=== PATIENT | female | born 1970 | race Caucasian/White ===

== ENCOUNTER 2017-01-03 18:36 | Observation (INO) ==
[2017-01-03] MEDS ORDERED: 0.9 % Sodium Chloride 1,000 ML IVC ONE (18:44)
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
[2017-01-03 19:04] LABS: Basophils # 0.1 K/mcL (0.0-0.2); Basophils % 0.5 %; Eosinophils # 0.1 K/mcL (0.0-0.6); Eosinophils % 1.3 %; Hematocrit 41.3 % (35.3-44.9); Hemoglobin 13.9 g/dL (11.5-15.4); Immature Granulocytes % 0.3 % (0-4); Lymphocytes # 2.4 K/mcL (0.6-4.6); Lymphocytes % 25.3 %; Mean Corpuscular HGB Conc 33.7 g/dL (31.6-35.5); Mean Corpuscular Hemoglobin 29.1 pg (28.0-33.3); Mean Corpuscular Volume 86.4 fL (83.0-100.0); Mean Platelet Volume 8.9 fL (9.4-12.4); Monocytes # 0.6 K/mcL (0.0-1.3); Monocytes % 6.3 %; Neutrophils # 6.2 K/mcL (1.6-8.9); Platelet Count 318 K/mcL (140-400); Red Blood Count 4.78 M/mcL (3.82-4.97); Red Cell Distribution Width 12.9 % (11.5-14.5); Segmented Neutrophils % 66.3 %
[2017-01-03 19:18] LABS: Alanine Aminotransferase 23 Units/L (0-55); Albumin 3.5 g/dL (3.5-5.0); Albumin/Globulin Ratio 0.9 (1.1-2.2); Alkaline Phosphatase 137 Units/L (38-126); Aspartate Amino Transferase 18 Units/L (5-34); BUN/Creatinine Ratio 12 (6-26); Bilirubin,Direct 0.1 mg/dL (0.0-0.5); Bilirubin,Indirect 0.1 mg/dL (0.0-1.2); Bilirubin,Total 0.2 mg/dL (0.2-1.2); Blood Urea Nitrogen 11 mg/dL (7-20); Calcium 9.3 mg/dL (8.6-10.8); Carbon Dioxide 25 mEq/L (19-29); Chloride 105 mEq/L (98-109); Creatine Kinase 101 Units/L (29-168); Globulin 3.7 g/dL (2.4-3.5); Glucose 155 mg/dL (70-99); Magnesium 1.6 mg/dL (1.6-2.6); Osmolality,Calculated 289 (280-300); Potassium 3.5 mEq/L (3.5-4.5); Sodium 138 mEq/L (136-145); Total Protein 7.2 g/dL (6.0-8.3); eGFR For African Americans > 60 (> 60); eGFR For Non-African Americans > 60 (> 60)
[2017-01-03 19:19] LABS: Acetaminophen < 1.0 mcg/mL (10-30); Ethanol < 10 mg/dL (0-10); Salicylate < 5.0 mg/dL (15-30)
[2017-01-03 19:50] LABS: Bilirubin,Urine Negative (Negative); Blood,Urine Moderate (Negative); Clarity,Urine Clear (Clear); Color,Urine Yellow (Yellow); Glucose,Urine (UA) Normal (Normal); Ketones,Urine Negative (Negative); Leukocyte Esterase,Urine Negative (Negative); Nitrite,Urine Negative (Negative); Protein,Urine Negative (Neg-Trace); Specific Gravity,Urine 1.028 (1.010-1.025); Urobilinogen,Urine Normal (Normal)
[2017-01-03 19:52] LABS: Bacteria,Urine None Seen per hpf (None-Few); Hyaline Casts,Urine Moderate per lpf (None-Few); Squamous Epithelial Cell,Urine Many per lpf (None-Few); WBC,Urine 0-3 per hpf (0-3)
[2017-01-03 19:56] LABS: Amphetamine Screen,Urine Positive ng/mL (Cutoff=1000); Barbiturate Screen,Urine Negative ng/mL (Cutoff=200); Benzodiazepines Screen,Urine Negative ng/mL (Cutoff=200); Cannabinoid Screen,Urine Negative ng/mL (Cutoff = 50); Cocaine Screen,Urine Negative ng/mL (Cutoff= 300); Opiate Screen,Urine Negative ng/mL (Cutoff=300); Phencyclidine Screen,Urine Negative ng/mL (Cutoff=25)
[2017-01-03] MEDS ORDERED: Amoxicillin 500 MG CAPSULE PO ONE (20:08)
--- NOTE | 2017-01-03 20:22 | Emergency Department Note ---
START Narrative - START START: I examined this patient and my medical decision-making was reviewed with the emergency medicine resident. I agree with the documented findings, disposition and treatment plan as described except to the extent set forth below. Patient seen with emergency medicine resident Dr. Too Muro, Please see a copy of his note for details of the H&P, ED evaluation, management and disposition. I have independently evaluated the patient and confirmed appropriate portions of the history and physical exam. Briefly: A 46-year-old female history of mental health presents with polysubstance ingestion intentional with suicidal ideations. Since it is unknown when and how much the patient has taken she will undergo repeat evaluation and that admission to the hospitalist service for medical clearance. EKG shows no acute ischemic changes aside from some mild tachycardia. There is no QT prolongation. She had slightly slurred speech and she was vomiting. She is able to maintain her airway. We have provided 45 minutes critical care service for this patient. Patient accepted for admission by the hospitalist in stable condition
[2017-01-03] MEDS ORDERED: Naloxone 0.4 MG/ML INJ IVP PRN (23:55)
[2017-01-03] MEDS ORDERED: Ondansetron 4 MG/2 ML VIAL IVP PRN (23:55)
--- NOTE | 2017-01-04 00:11 | Internal Med History&Physical ---
Date of Encounter: 01/03/17 Time of Encounter: 23:00 Assessment and Plan (1) DVT prophylaxis Current visit: Yes Status: Acute EPCD (2) Depression Current visit: Yes Status: Acute Will consult psychiatry Qualifiers: Depression Type: unspecified Qualified Code(s): F32.9 - Major depressive disorder, single episode, unspecified (3) Suicidal ideation Current visit: Yes Status: Acute Place pt on 1:1 sitter. Suicidal precautions. Psych consult in AM (4) Suicide attempt by multiple drug overdose Current visit: Yes Status: Acute Pt has intentionally medication overdose. Poison control called by ER, recommend supportive treatment. - Place pt NPO now, ivf - Continuous cardiac monitoring - Repeat renal, liver function, repeat PT/INR in AM - Repeat EKG in AM Qualifiers: Encounter type: initial encounter Qualified Code(s): T50.902A - Poisoning by unspecified drugs, medicaments and biological substances, intentional self- harm, initial encounter Internal Medicine - H&P: HPI Chief complaint: Medication overdose Admitted From: Home Plans for Post Hospital Care: Transfer Psych Facility History of present illness: Ms. Jaimes is a 46 year old female with a history of depression present to ER for medication overdose. Patient deliberately take an overdose medication, which may include Bupropion, gabapentin, meripex, and omeprazole. Patient took this medication in the evening. Patient cannot tell how much she had taken. However, she vomited once after taking these medications. The vomiting are stomach content, no blood in it. Patient still feel dizzy, mild nausea. She denies chest pain, shortness of breath, abdominal pain. Patient denies loss of consciousness after taking the medications. Patient admits she had suicide attempt but denies suicide idea or homicidal idea at this point. Past Med Surg Social Fam HX - Past Medical History Medical history: non-contributory Psychiatric history: anxiety, depression, prior suicide attempt - Past Surgical History Surgical History: non-contributory - Social History Smoking Status: Unknown if ever smoked Smokeless Tobacco Status: No Alcohol use: none Drug use: none - Family History Mother Hx Family Psychosocial Disorders: Yes (major depression) Internal Medicine - H&P: Meds BuPROPion [Wellbutrin] 150 mg PO BID 01/03/17 [History] Gabapentin [Neurontin] 1,600 mg PO HS 01/03/17 [History] Gabapentin [Neurontin] 400 mg PO QAM 01/03/17 [History] Mirapex 01/03/17 [History] Omeprazole [PriLOSEC] 20 mg PO DAILY 01/03/17 [History] 3 Allergy/AdvReac Type Severity Reaction Status Date / Time No Known Allergies Allergy Verified 01/03/17 20:10 All Systems PM: A 10-system review of systems was performed and is negative for pertinent findings except as documented above in the HPI. - Constitutional Vitals: Temp Pulse Resp BP Pulse Ox 97.9 F 102 16 113/63 94 01/03/17 21:34 01/03/17 21:34 01/03/17 21:34 01/03/17 21:34 01/03/17 21:34 General appearance: Present: A&O X 3, no acute distress, answers questions appropriately - Head Head exam: Present: atraumatic, normocephalic - Eye Eye exam: Present: PERRL, conjuntiva pink, sclera anicteric Pupils: Present: PERRL - Neck Neck exam general surgery: Present: supple, trachea midline. Absent: lymphadenopathy - Respiratory Respiratory exam: Present: CTAB. Absent: accessory muscle use, rales, rhonchi, wheezes - Cardiovascular Cardiovascular exam: Present: RRR, +S1, +S2. Absent: diastolic murmur, gallop, rubs, systolic murmur - GI/Abdominal GI/Abdominal exam: Present: normal bowel sounds, soft, no peritoneal signs. Absent: distended, tenderness - Extremities Exam Extremities exam: Present: warm, radial pulses palpable and symmetrical. Absent : calf tenderness, cyanotic, pedal edema - Neurological Exam Neurological exam: Present: CN II-XII intact, oriented X3, no focal deficits. Absent: pronater drift, facial droop, speech deficit - Skin Skin exam: Present: dry, intact Internal Med - H&P Results - Labs CBC & Chem 7: 01/03/17 18:54 01/03/17 18:54 - EKG Data -: EKG Interpreted by Myself EKG shows normal: sinus rhythm Rate: normal
[2017-01-04] MEDS: 0.9 % Sodium Chloride 1,000 ML IVC SCH ×2 (00:21→14:35)
[2017-01-04 03:14] LABS: Basophils % 0.3 %; Eosinophils # 0.1 K/mcL (0.0-0.6); Eosinophils % 0.6 %; Hematocrit 37.6 % (35.3-44.9); Hemoglobin 12.6 g/dL (11.5-15.4); Immature Granulocytes % 0.7 % (0-4); Lymphocytes # 2.5 K/mcL (0.6-4.6); Lymphocytes % 20.3 %; Mean Corpuscular HGB Conc 33.5 g/dL (31.6-35.5); Mean Corpuscular Hemoglobin 28.8 pg (28.0-33.3); Mean Platelet Volume 8.9 fL (9.4-12.4); Monocytes # 0.9 K/mcL (0.0-1.3); Neutrophils # 8.7 K/mcL (1.6-8.9); Platelet Count 331 K/mcL (140-400); Red Blood Count 4.37 M/mcL (3.82-4.97); Segmented Neutrophils % 71.1 %
[2017-01-04 03:22] LABS: INR 1.1; Prothrombin Time 12.3 Seconds (9.4-12.1)
[2017-01-04 03:32] LABS: Alanine Aminotransferase 20 Units/L (0-55); Albumin 3.1 g/dL (3.5-5.0); Alkaline Phosphatase 120 Units/L (38-126); Aspartate Amino Transferase 16 Units/L (5-34); BUN/Creatinine Ratio 11 (6-26); Bilirubin,Total 0.3 mg/dL (0.2-1.2); Blood Urea Nitrogen 9 mg/dL (7-20); Calcium 8.5 mg/dL (8.6-10.8); Carbon Dioxide 26 mEq/L (19-29); Chloride 106 mEq/L (98-109); Globulin 3.2 g/dL (2.4-3.5); Glucose 89 mg/dL (70-99); Osmolality,Calculated 288 (280-300); Potassium 3.7 mEq/L (3.5-4.5); Sodium 140 mEq/L (136-145); Total Protein 6.3 g/dL (6.0-8.3); eGFR For African Americans > 60 (> 60); eGFR For Non-African Americans > 60 (> 60)
--- NOTE | 2017-01-04 13:17 | Consult Note ---
Date of Encounter: 01/04/17 Time of Encounter: 11:30 Assessment & Recommendation (1) Adjustment disorder with disturbance of conduct Current visit: Yes Status: Acute Assessment & Recommendation: Patient reports acting impulsively after being told she could not have money for something that she wanted to buy. At this time she denies suicidal ideation and regrets her decision to take the pills. She also called the ambulance immediately after she overdosed. At this time, she does not seem appropriate for inpatient psychiatric stabilization. Mom states that patient often becomes confused and irritated in different environments and admission may exacerbate this. Mom was comfortable with her returning home and there is a safe environment for her there. Encouraged patient to continue outpatient mental health treatment. (2) Depression Current visit: Yes Status: Chronic Assessment & Recommendation: Recommend continuing current medications. Follow-up with outpatient provider and therapist. Qualifiers: Depression Type: major depressive disorder Major depression recurrence: recurrent Active/Remission status: currently active Major depression episode severity: moderate Qualified Code(s): F33.1 - Major depressive disorder, recurrent, moderate History of Present Illness Patient: new to practice Requesting Physician: Deborah Bruno CNP Reason for consult: overdose History of present illness: Ms. Jaimes is a 46 year old female with a history of TBI and long-standing history of depression who presented to the hospital after impulsively overdosing on her medications. Patient reports that she was having an argument with her mother about money and then together with her daughter. She became upset and impulsively decided to take her medications, which she did not front of her daughter. She then called the sales support coordinator on herself and an ambulance brought her to the hospital. Patient states that she feels a little groggy from the medications but overall she is feeling better than when she first arrived. She regrets her decision to take the medications. "I know you are not supposed to do that." She states that she does have a good therapist that she sees outpatient. She denies chronic suicidal ideation or any recent severe depression. She is treated for depression and mood symptoms as an outpatient and states that she feels for the most part her symptoms are under good control. She does admit that her traumatic brain injury makes her more irritable and easily upset. She denies guns or weapons in the home. She denies auditory or visual hallucinations. She denies sleep issues. Her main stressors are arguments with her daughter which are usually verbal. Mother of patient's, Mercedez, was contacted. Mercedez reports that Elena has been doing pretty well for the most part. She had been more agitated lately because she was involved with some people on the Internet scanning her. She does get upset because her mother is her payee for Social Security. Sometimes she does not like it when mom does not provide money for her. Mom states that she is not concerned about Elena trying to hurt herself again. Mom feels this is very out of character for her. Mom confirms no guns or weapons in the home and that she will be monitored and encouraged to continue her outpatient mental health treatment. CC: Deborah Bruno CNP Past Med Surg Social Fam HX - Past Medical History Medical history: non-contributory - Past Psychiatric History Psychiatric history: Reports: depression. Denies: prior suicide attempt Past psychiatric history details: Patient has past history of substance abuse. She has been admitted a couple times for depression but no history of suicide attempts. Family psychiatric history: No Family History of Suicide: None - Past Surgical History Surgical History: non-contributory - Social History Smoking Status: Unknown if ever smoked Smokeless Tobacco Status: No Alcohol use: none Drug use: none Occupational status: disabled Current living situation: Home, With Family - Family History Mother Hx Family Psychosocial Disorders: Yes (major depression) Medications & Allergies BuPROPion [Wellbutrin] 150 mg PO BID 01/03/17 [History] Gabapentin [Neurontin] 1,600 mg PO HS 01/03/17 [History] Gabapentin [Neurontin] 400 mg PO QAM 01/03/17 [History] Mirapex 01/03/17 [History] Omeprazole [PriLOSEC] 20 mg PO DAILY 01/03/17 [History] 3 Allergy/AdvReac Type Severity Reaction Status Date / Time No Known Allergies Allergy Verified 01/03/17 20:10 Review of Systems Psychiatric: Reports: anxiety, irritability. Denies: depression, abnormal sleep pattern, suicidal ideation, auditory hallucinations, visual hallucinations , anhedonia, change in libido, difficulty concentrating, hopelessness, mood swings Mental Status Exam Patient orientation: Yes Person, Yes Time, Yes Place Level of alertness: Alert Patient appearance: Appropriate Behavior: calm, cooperative Psychomotor activity: Normal Eye contact: Maintains Eye Contact Mood description: Euthymic/stable Affect description: congruent with mood Speech pattern: Normal rate, Normal rhythm, Normal tone Speech volume: Normal Thought process: Intact, Goal Oriented Thought content: No Suicidal ideation, No Homicidal ideation, No Overt delusions Perceptual disturbances: No Auditory hallucinations, No Visual hallucinations Attention span: Capable of Focused Attention Memory description: Grossly Intact Patient reliability: Reliable Historian Intelligence estimate: Below Average Judgment: Limited Insight: Partial Results - Vital Signs Vital signs: Temp Pulse Resp BP Pulse Ox 98.6 F 94 17 109/72 90 01/04/17 07:30 01/04/17 11:56 01/04/17 07:30 01/04/17 11:56 01/04/17 07:30 - Labs Labs: Laboratory Last Values WBC 12.2 K/mcL (4.3-11.1) H 01/04/17 02:59 RBC 4.37 M/mcL (3.82-4.97) 01/04/17 02:59 Hgb 12.6 g/dL (11.5-15.4) 01/04/17 02:59 Hct 37.6 % (35.3-44.9) 01/04/17 02:59 MCV 86.0 fL (83.0-100.0) 01/04/17 02:59 MCH 28.8 pg (28.0-33.3) 01/04/17 02:59 MCHC 33.5 g/dL (31.6-35.5) 01/04/17 02:59 RDW 13.0 % (11.5-14.5) 01/04/17 02:59 Plt Count 331 K/mcL (140-400) 01/04/17 02:59 MPV 8.9 fL (9.4-12.4) L 01/04/17 02:59 Immature Gran % 0.7 % (0-4) 01/04/17 02:59 Seg Neutrophils % 71.1 % 01/04/17 02:59 Lymphocytes % 20.3 % 01/04/17 02:59 Monocytes % 7.0 % 01/04/17 02:59 Eosinophils % 0.6 % 01/04/17 02:59 Basophils % 0.3 % 01/04/17 02:59 Neutrophils # 8.7 K/mcL (1.6-8.9) 01/04/17 02:59 Lymphocytes # 2.5 K/mcL (0.6-4.6) 01/04/17 02:59 Monocytes # 0.9 K/mcL (0.0-1.3) 01/04/17 02:59 Eosinophils # 0.1 K/mcL (0.0-0.6) 01/04/17 02:59 Basophils # 0.0 K/mcL (0.0-0.2) 01/04/17 02:59 Immature Plt Fraction 2.0 % (1.1-6.1) 01/04/17 02:59 PT 12.3 Seconds (9.4-12.1) H 01/04/17 02:59 INR 1.1 01/04/17 02:59 Sodium 140 mEq/L (136-145) 01/04/17 02:59 Potassium 3.7 mEq/L (3.5-4.5) 01/04/17 02:59 Chloride 106 mEq/L (98-109) 01/04/17 02:59 Carbon Dioxide 26 mEq/L (19-29) 01/04/17 02:59 BUN 9 mg/dL (7-20) 01/04/17 02:59 Creatinine 0.79 mg/dL (0.57-1.11) 01/04/17 02:59 Est GFR ( Amer) > 60 (> 60) 01/04/17 02:59 Est GFR (Non-Af Amer) > 60 (> 60) 01/04/17 02:59 BUN/Creatinine Ratio 11 (6-26) 01/04/17 02:59 Glucose 89 mg/dL (70-99) 01/04/17 02:59 POC Glucose 148 (58-89) H 01/03/17 18:58 Calculated Osmolality 288 (280-300) 01/04/17 02:59 Calcium 8.5 mg/dL (8.6-10.8) L 01/04/17 02:59 Magnesium 1.6 mg/dL (1.6-2.6) 01/03/17 18:54 Total Bilirubin 0.3 mg/dL (0.2-1.2) 01/04/17 02:59 Direct Bilirubin 0.1 mg/dL (0.0-0.5) 01/03/17 18:54 Indirect Bilirubin 0.1 mg/dL (0.0-1.2) 01/03/17 18:54 AST 16 Units/L (5-34) 01/04/17 02:59 ALT 20 Units/L (0-55) 01/04/17 02:59 Alkaline Phosphatase 120 Units/L (38-126) 01/04/17 02:59 Creatine Kinase 101 Units/L (29-168) 01/03/17 18:54 Serum Total Protein 6.3 g/dL (6.0-8.3) 01/04/17 02:59 Albumin 3.1 g/dL (3.5-5.0) L 01/04/17 02:59 Globulin 3.2 g/dL (2.4-3.5) 01/04/17 02:59 Albumin/Globulin Ratio 1.0 (1.1-2.2) L 01/04/17 02:59 Urine Color Yellow (Yellow) 01/03/17 19:42 Urine Clarity Clear (Clear) 01/03/17 19:42 Urine pH 5.0 pH Units (5.0-8.0) 01/03/17 19:42 Ur Specific [place] 1.028 (1.010-1.025) H 01/03/17 19:42 Urine Protein Negative mg/dL (Neg-Trace) 01/03/17 19:42 Urine Glucose (UA) Normal mg/dL (Normal) 01/03/17 19:42 Urine Ketones Negative mg/dL (Negative) 01/03/17 19:42 Urine Blood Moderate (Negative) H 01/03/17 19:42 Urine Nitrite Negative (Negative) 01/03/17 19:42 Urine Bilirubin Negative (Negative) 01/03/17 19:42 Urine Urobilinogen Normal mg/dL (Normal) 01/03/17 19:42 Ur Leukocyte Esterase Negative (Negative) 01/03/17 19:42 Urine Microscopic RBC 3-5 per hpf (0-3) H 01/03/17 19:42 Urine Microscopic WBC 0-3 per hpf (0-3) 01/03/17 19:42 Ur Squamous Epith Cells Many per lpf (None-Few) H 01/03/17 19:42 Urine Bacteria None Seen per hpf (None-Few) 01/03/17 19:42 Hyaline Casts Moderate per lpf (None-Few) H 01/03/17 19:42 Urine Test Negative (Negative) 01/03/17 19:42 Salicylates < 5.0 mg/dL (15-30) L 01/03/17 18:54 Urine Opiates Screen Negative ng/mL (Sgkjsf=991) 01/03/17 19:42 Acetaminophen < 1.0 mcg/mL (10-30) L 01/03/17 18:54 Ur Barbiturates Screen Negative ng/mL (Dkptts=468) 01/03/17 19:42 Ur Phencyclidine Scrn Negative ng/mL (Cutoff=25) 01/03/17 19:42 Ur Amphetamines Screen Positive ng/mL (Hredqp=4804) H 01/03/17 19:42 U Benzodiazepines Scrn Negative ng/mL (Gmpgej=779) 01/03/17 19:42 Urine Cocaine Screen Negative ng/mL (Cutoff= 300) 01/03/17 19:42 U Marijuana (THC) Screen Negative ng/mL (Cutoff = 50) 01/03/17 19:42 Ethyl Alcohol < 10 mg/dL (0-10) 01/03/17 18:54 Consult Discharge Plan - Plan Referrals: NONE,PCP [Primary Care Provider] -
--- NOTE | 2017-01-04 14:26 | Discharge Summary ---
Date of Encounter: 01/04/17 Time of Encounter: 14:25 - Discharge Diagnosis (1) Deliberate medication overdose Priority: Primary Status: Acute Comments: Elena Jaimes is a 46-year-old female with past medical history TBI, depression and adjustment disorder who presented to [facility] on 01/03/2017 after an intentional overdose. She was placed in observation status for further workup and treatment. 1. Intentional medication overdose: deliberately took an overdose of Bupropion , gabapentin, meripex, and omeprazole after she got into an argument with her daughter and mother. She denies suicidal ideation and verbalized regretting taking the medication. Of note she did call ambulance immediately after she took the medication. Evaluated by Psychiatry who did not feel she required inpatient psychiatric treatment and was safe to discharge home with mother. Poison control was called in ER who recommended symptomatic control. Had an episode of retention which was responsive to IV fluids. Advised patient to stay overnight however patient declined and requested to be discharged. BP improved at time of discharge. 2. Depression: per hx. Cont home medications. Can follow up with outpatient Psychiatrist Qualifiers: Encounter type: initial encounter Qualified Code(s): T50.902A - Poisoning by unspecified drugs, medicaments and biological substances, intentional self- harm, initial encounter (2) Depression Priority: Primary Status: Chronic Qualifiers: Depression Type: major depressive disorder Major depression recurrence: recurrent Active/Remission status: currently active Major depression episode severity: moderate Qualified Code(s): F33.1 - Major depressive disorder, recurrent, moderate (3) Adjustment disorder with disturbance of conduct Priority: Primary Status: Acute - Discharge Medications Home Medications: BuPROPion [Wellbutrin] 150 mg PO BID 01/03/17 [History] Gabapentin [Neurontin] 1,600 mg PO HS 01/03/17 [History] Gabapentin [Neurontin] 400 mg PO QAM 01/03/17 [History] Mirapex 01/03/17 [History] Omeprazole [PriLOSEC] 20 mg PO DAILY 01/03/17 [History] Allergies/Adverse Reactions: 3 Allergy/AdvReac Type Severity Reaction Status Date / Time No Known Allergies Allergy Verified 01/03/17 20:10 Procedures/tests Complete & Pending: Procedures Performed prior 72 hours Category Date Time Status EKG [ECG 12 lead ECG] [ECG] AM 0600 Y 01/04/17 06:00 Completed Date of admission: 01/03/17 20:32 Primary care physician: PCP NONE Consults: 01/04/17 09:30 Consult to Psychiatry [CONS] Routine Consulting Provider: Elena Gao Reason for Consult: overdose Call Completed: Yes Discharging clinician: Deborah Bruno Anticipated date of discharge: 01/04/17 - Patient Status Disposition: Home, Self-Care Condition: Good Functional capacity at discharge: independent ambulation Overall status at discharge: patient is back to baseline - Discharge Instructions Follow Up With: NONE,PCP [Primary Care Provider] - - Diet and Activity Activity: increase activity as tolerated Diet: advance to your usual diet Interval History: Seen and examined at bedside. Patient is new to me, information obtained from chart review and patient report. Patient says she feels tired and is groggy but overall improved. She would like to go home today. She tells me that she took medications after getting into fight with her mother and daughter. She regrets doing so. She denies suicidal ideation. I asked her to stay overnight for continued observation with her blood pressure being low and patient stated she really wants to go home because she wants to smoke. She is agreeable to stay for now. No chest pain, no shortness of breath. Hospital course: Ms. Jaimes is a 46 year old female - Time Spent with Patient Total time spent providing and/or coordinating discharge services: - Constitutional Vitals: Temp Pulse Resp BP Pulse Ox 98.6 F 94 17 109/72 90 01/04/17 07:30 01/04/17 11:56 01/04/17 07:30 01/04/17 11:56 01/04/17 07:30 General appearance: Present: A&O X 3, no acute distress, answers questions appropriately Exam: Drowsy but oriented - Head Head exam: Present: atraumatic, normocephalic - Eye Eye exam: Present: PERRL, conjuntiva pink, sclera anicteric Pupils: Present: PERRL - Neck Neck exam general surgery: Present: supple, trachea midline. Absent: lymphadenopathy - Respiratory Respiratory exam: Present: CTAB. Absent: accessory muscle use, rales, rhonchi, wheezes - Cardiovascular Cardiovascular exam: Present: RRR, +S1, +S2. Absent: diastolic murmur, gallop, rubs, systolic murmur - GI/Abdominal GI/Abdominal exam: Present: normal bowel sounds, soft, no peritoneal signs. Absent: distended, tenderness - Extremities Exam Extremities exam: Present: warm, radial pulses palpable and symmetrical. Absent : calf tenderness, cyanotic, pedal edema - Neurological Exam Neurological exam: Present: CN II-XII intact, oriented X3, no focal deficits. Absent: pronater drift, facial droop, speech deficit - Skin Skin exam: Present: dry, intact - VTE Documentation of Mechanical Device: Intermittent pneumatic compression device
--- NOTE | 2017-01-04 18:18 | Electrocardiograph Report ---
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
--- NOTE | 2017-01-04 18:19 | Electrocardiograph Report ---
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
--- NOTE | 2017-01-04 18:30 | Electrocardiograph Report ---
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
[2017-01-04] MEDS ORDERED: Nicotine 21 MG PATCH.TD24 TD SCH (22:45)
[2017-01-05 03:36] LABS: Hematocrit 37.9 % (35.3-44.9); Hemoglobin 12.8 g/dL (11.5-15.4); Mean Corpuscular HGB Conc 33.8 g/dL (31.6-35.5); Mean Corpuscular Hemoglobin 29.2 pg (28.0-33.3); Mean Corpuscular Volume 86.5 fL (83.0-100.0); Mean Platelet Volume 8.9 fL (9.4-12.4); Platelet Count 278 K/mcL (140-400); Red Blood Count 4.38 M/mcL (3.82-4.97); Red Cell Distribution Width 13.1 % (11.5-14.5)
[2017-01-05 03:51] LABS: Calcium 8.6 mg/dL (8.6-10.8); Carbon Dioxide 23 mEq/L (19-29); Chloride 109 mEq/L (98-109); Glucose 84 mg/dL (70-99); Osmolality,Calculated 282 (280-300); Potassium 3.6 mEq/L (3.5-4.5); Sodium 138 mEq/L (136-145); eGFR For African Americans > 60 (> 60); eGFR For Non-African Americans > 60 (> 60)
[2017-01-05 04:36] LABS: BUN/Creatinine Ratio 7 (6-26); Blood Urea Nitrogen 5 mg/dL (7-20)
--- NOTE | 2017-01-05 08:07 | Discharge Summary ---
Date of Encounter: 01/05/17 Time of Encounter: 07:56 - Discharge Diagnosis (1) Deliberate medication overdose Priority: Primary Status: Resolved Comments: Elena Jaimes is a 46-year-old female with past medical history TBI, depression and adjustment disorder who presented to [facility] on 01/03/2017 after an intentional overdose. She was placed in observation status for further workup and treatment. 1. Intentional medication overdose: deliberately took an overdose of Bupropion , gabapentin, meripex, and omeprazole after she got into an argument with her daughter and mother. UDS positive for amphetamines. Poison control was called in ER who recommended symptomatic treatment. She denied suicidal ideation and verbalized regretting taking the medication. Evaluated by Psychiatry who did not feel she required inpatient psychiatric treatment and was safe to discharge home with mother. She remained hemodynamically stable. Strongly encouraged outpatient follow-up with primary Psychiatrist 2. Depression: per hx. Cont home medications. Can follow up with outpatient Psychiatrist Qualifiers: Encounter type: initial encounter Qualified Code(s): T50.902A - Poisoning by unspecified drugs, medicaments and biological substances, intentional self- harm, initial encounter (2) Depression Priority: Primary Status: Chronic Qualifiers: Depression Type: major depressive disorder Major depression recurrence: recurrent Active/Remission status: currently active Major depression episode severity: moderate Qualified Code(s): F33.1 - Major depressive disorder, recurrent, moderate (3) Adjustment disorder with disturbance of conduct Priority: Primary Status: Acute - Discharge Medications Home Medications: BuPROPion [Wellbutrin] 150 mg PO BID 01/03/17 [History] Gabapentin [Neurontin] 1,600 mg PO HS 01/03/17 [History] Gabapentin [Neurontin] 400 mg PO QAM 01/03/17 [History] Mirapex 01/03/17 [History] Omeprazole [PriLOSEC] 20 mg PO DAILY 01/03/17 [History] Allergies/Adverse Reactions: 3 Allergy/AdvReac Type Severity Reaction Status Date / Time No Known Allergies Allergy Verified 01/03/17 20:10 Procedures/tests Complete & Pending: Procedures Performed prior 72 hours Category Date Time Status EKG [ECG 12 lead ECG] [ECG] AM 0600 Y 01/04/17 06:00 Completed Date of admission: 01/03/17 20:32 Primary care physician: PCP NONE Consults: 01/04/17 09:30 Consult to Psychiatry [CONS] Routine Consulting Provider: Psychiatry Sima Reason for Consult: overdose Call Completed: Yes Discharging clinician: Deborah Bruno Anticipated date of discharge: 01/05/17 - Patient Status Disposition: Home, Self-Care Condition: Good Functional capacity at discharge: independent ambulation Overall status at discharge: patient is back to baseline - Discharge Instructions Instructions: Methamphetamine Abuse (DC), Suicide Prevention for Adults (DC), Depression (DC) Follow Up With: NONE,PCP [Primary Care Provider] - Additional Instructions: Call your family doctor within 24 hours her next business day to make a follow- up appointment Please keep your appointment with your Psychiatrist on 01/29/2017 as previously scheduled. - Diet and Activity Activity: increase activity as tolerated Diet: advance to your usual diet Interval History: Seen and examined at bedside, patient says she feels back to baseline and wants to go home. She denies SI, says she was upset and made a mistake. Her only complaint/concern is wanting to go home and have a cigarette. No chest pain, no shortness of breath. Hospital course: See assessment and plan for hospital course - Time Spent with Patient Total time spent providing and/or coordinating discharge services: - Constitutional Vitals: Temp Pulse Resp BP Pulse Ox 97.8 F 76 16 105/77 94 01/05/17 02:30 01/05/17 02:30 01/05/17 02:30 01/05/17 02:30 01/05/17 02:30 General appearance: Present: A&O X 3, morbidly obese, no acute distress, answers questions appropriately - Head Head exam: Present: atraumatic, normocephalic - Eye Eye exam: Present: PERRL, conjuntiva pink, sclera anicteric Pupils: Present: PERRL - Neck Neck exam general surgery: Present: supple, trachea midline. Absent: lymphadenopathy - Respiratory Respiratory exam: Present: CTAB. Absent: accessory muscle use, rales, rhonchi, wheezes - Cardiovascular Cardiovascular exam: Present: RRR, +S1, +S2. Absent: diastolic murmur, gallop, rubs, systolic murmur - GI/Abdominal GI/Abdominal exam: Present: normal bowel sounds, soft, no peritoneal signs. Absent: distended, tenderness - Extremities Exam Extremities exam: Present: warm, radial pulses palpable and symmetrical. Absent : calf tenderness, cyanotic, pedal edema - Neurological Exam Neurological exam: Present: CN II-XII intact, oriented X3, no focal deficits. Absent: pronater drift, facial droop, speech deficit - Skin Skin exam: Present: dry, intact - VTE Documentation of Mechanical Device: Intermittent pneumatic compression device
[2017-01-05 08:09] VITALS: BP 100/54
== END 2017-01-05 10:17 | disposition home or self-care (01) ==
LOC: 3BNU 18:36 → EMEROO 18:36 → 3BNU 21:14
PROVIDERS: ADMIT Registered Nurse; ATTEND Registered Nurse